=== PATIENT | male | born 1985 | race Caucasian/White ===

== ENCOUNTER 2024-09-09 14:17 | Emergency (ER) | payer SELFPAY ==
[~2024-09-09] VITALS: Ht 180.3 cm; Wt 95.0 kg
[2024-09-09 14:20] VITALS: O2SAT 99
[2024-09-09] MEDS ORDERED: CEPH500C2 MT (15:50)
[2024-09-09] MEDS: CEPHALEXIN 250MG CAPSULE PO ONE (16:00)
[2024-09-09 16:10] VITALS: BP 112/68; PULSE 82; RESP 16; TEMP 37.00296
== END 2024-09-09 16:10 | disposition home or self-care (01) ==
LOC: ER 14:17
DX: L03.114 Cellulitis of left upper limb (principal)
CPT/HCPCS: 99283